=== PATIENT | male | born 1990 | race Caucasian/White ===

== ENCOUNTER 2019-10-15 04:57 | Emergency (ER) | payer SELFPAY ==
--- NOTE | 2019-10-15 05:31 | EDM.PDOC ---
ED HPI GENERAL MEDICAL PROBLEM - General Chief Complaint: ENT Problem Stated Complaint: R SIDE FACIAL PAIN Time Seen by Provider: 10/15/19 05:19 Source of Information: Reports: Patient, RN Notes Reviewed History Limitations: Reports: No Limitations - History of Present Illness INITIAL COMMENTS - FREE TEXT/NARRATIVE: 29-year-old gentleman presents emergency department a complaint of dental pain, states been having pain for the last couple days he has not had any fevers yet but the sensation now has spread to upper and lower jaw he does have a cavity upper tooth no difficulty swallowing - Related Data Allergies Allergy/AdvReac Type Severity Reaction Status Date / Time No Known Allergies Allergy Verified 10/15/19 05:26 Home Meds: Home Meds buPROPion [buPROPion XL] 300 mg PO DAILY 10/15/19 [History] busPIRone [Buspar] 15 mg PO DAILY 10/15/19 [History] hydrOXYzine HCL [Hydroxyzine HCl] 50 mg PO BID PRN 10/15/19 [History] Past Medical History Psychiatric History: Reports: Depression Social & Family History - Tobacco Use Smoking Status *Q: Never Smoker ED ROS ENT - Review of Systems Review Of Systems: See Below Constitutional: Denies: Fever, Chills HEENT: Reports: Dental Pain Respiratory: Reports: No Symptoms Cardiovascular: Reports: No Symptoms ED EXAM, ENT - Physical Exam Exam: See Below Text/Narrative:: Mouth mucosa is moist and pink no erythema exudate known soft palate tongue is midline uvula is midline tooth #3 is tender to the touch I do appreciate a cavity as well Exam Limited By: No Limitations General Appearance: Alert, WD/WN, No Apparent Distress Respiratory/Chest: No Respiratory Distress Course - Vital Signs Last Recorded V/S: Last Vital Signs Temp 97.4 F 10/15/19 05:20 Pulse 71 10/15/19 05:20 Resp 16 10/15/19 05:20 BP 166/86 H 10/15/19 05:20 Pulse Ox 99 10/15/19 05:20 Departure - Departure Time of Disposition: 05:30 Disposition: Home, Self-Care 01 Condition: Fair Clinical Impression: Dental abscess - Discharge Information Instructions: Dental Abscess Referrals: PCP,None [Primary Care Provider] - Additional Instructions: Please report to the dental clinic Thursday 8 AM for further evaluation take full course of antibiotics use ibuprofen for baseline pain control use hydrocodone for breakthrough pain Sepsis Event Note (ED) - Focused Exam Vital Signs: Vital Signs Temp Pulse Resp BP Pulse Ox 10/15/19 05:20 97.4 F 71 16 166/86 H 99 - Assessment/Plan Plan: Assessment Acuity = acute Site and laterality = dental abscess Etiology = dental caries Manifestations = pain Location of injury = Home Lab values = none Plan Prescription written for amoxicillin 500 mg p.o. 3 times daily x10 days also hydrocodone 5/325 1 tab p.o. 3 times daily PRN total #10 consultation with the dental clinic to set up for Thursday at 8 AM This note was dictated using [employer] voice recognition software please call with any questions on syntax or grammar.
== END 2019-10-15 05:43 | disposition home or self-care (01) ==
LOC: JP.ED 04:57
DX: K04.7 Periapical abscess without sinus (principal); F32.9 Major depressive disorder, single episode, unspecified; Z79.899 Other long term (current) drug therapy
CPT/HCPCS: 99282